=== PATIENT | male | born 2000 | race Caucasian/White ===

== ENCOUNTER 2019-08-01 13:07 | Emergency (ER) | payer BC, SELFPAY ==
--- NOTE | 2019-08-01 13:11 | ED.PSYCH ---
HPI - Psych General Chief Complaint: Psychiatric Symptoms Stated Complaint: ambulance Time Seen by Provider: 08/01/19 13:09 Source: patient, EMS and RN notes reviewed Mode of arrival: ambulatory Limitations: no limitations History of Present Illness HPI Narrative: patient states he got an argument with his father today. His father told him to get out of the house. He then texted someone that he was thinking of drowning himself and alike. He stopped in was smoking some marijuana when police arrived. He said he has had a long history of depression but this episode started today with argument with father. complaint: suicidal ideation and feels depressed Onset (ago): day(s) (1) Duration: intermittent History of same: Yes Relieving factors: none Exacerbating factors: none Context: recent drug abuse (Xanax and Marijuana) Associated psychiatric symptoms: depression Associated symptoms: denies other symptoms Treatments prior to arrival: none If self harm: admits thoughts of self harm Details of plan: Threatened to drown himself in a hernandez in text messages. Related Data Home Medications Medication Instructions Recorded Confirmed No Home Medications 08/01/19 08/01/19 Allergies Allergy/AdvReac Type Severity Reaction Status Date / Time No Known Allergies Allergy Verified 08/01/19 13:14 Review of Systems Review of Systems: All systems reviewed & are unremarkable except as noted in HPI and below PMFSH Past Medical History Medical History (Updated 08/01/19 @ 14:09 by Frank Booth MD) Depression Surgical History Surgical History (Updated 08/01/19 @ 13:22 by Frank Booth MD) No history of previous surgery Social History Social History (Updated 08/01/19 @ 13:22 by Frank Booth MD) Smoking status: Never smoker Alcohol intake: current Alcohol use details: occasional Substance use: current Substance use type: marijuana Living arrangements: with family Gender identity (if verbalized by the patient): Male Exam Const: General: healthy appearing, no acute distress and alert Nutritional Appearance: well nourished Orientation/consciousness: patient oriented x3 HENMT: Head: normal to inspection Ears: external ears normal Face and sinus: normal facial exam Eyes: Conjunctivae: conjunctivae normal Pupils: Equal, round and reactive pupils present EOM: EOMs intact bilaterally Neck: Neck: normal visual inspection Resp: Effort & Inspection: normal respiratory effort Auscultation: clear to auscultation bilaterally Cardio: Rate: regular rate Rhythm: regular rhythm GI: GI Palp: Yes Soft to palpation and No Tenderness to palpation present (GI) Auscultation: normal bowel sounds Back/Spine/Pelvis: Cervical Spine: cervical ROM normal Thoracic/Lumbar Spine: thoraco-lumbar ROM normal Skin: General skin exam: normal color Rashes: no rashes Neuro: General: patient oriented x3, moves all extremities and no focal motor deficits Speech: normal speech Psych: Speech and movement: Normal speech and movement present Affect: Indifferent affect present Attitude: cooperative Thought process: Normal thought process present Thought content: Yes Depressive thoughts present Insight: Good insight present (Psych) Judgement: Good judgement present (Psych) Course Course Emergency Course: Patient decided to elope from the emergency room when he was told he was going to be an involuntary admit. [facility] [employer] counseling services spoke with his mother. She had text messages same that the patient was going to harm her and harm her and then harm himself. She the mother is quite concerned that he needs professional help. Reevaluation(s) Reevaluation #1: patient became combative and belligerent. He is screaming at the top of his voice. Telling everyone to F off. He was disrespectful to police academy instructor and then began with destruction of property in the hospital. He was screaming and yellin
[2019-08-01 13:15] VITALS: BP 133/82; PULSE 108; RESP 16; TEMP 36.9; O2SAT 96
[2019-08-01 13:35] LABS: Amphetamine Screen Urine Positive (Negative); Barbiturate Screen Urine Negative (Negative); Benzodiazepines Screen Urine Positive (Negative); Cannabinoid Screen Urine Positive (Negative); Cocaine Screen Urine Negative (Negative); Methadone Screen Urine Negative (Negative); Opiate Screen Urine Negative (Negative); Phencyclidine Screen Urine Negative (Negative)
[2019-08-01 13:38] LABS: Basophils Absolute Auto 0.04 K/mm3 (0.00-0.10); Basophils Percent Auto 0.4 % (0.0-1.0); Eosinophils Absolute Auto 0.07 K/mm3 (0.02-0.50); Eosinophils Percent Auto 0.7 % (1.0-6.0); Hematocrit 52.1 % (40.0-54.0); Hemoglobin 17.9 g/dL (14.0-18.0); Immature Granulocyte Absolute 0.03 K/mm3 (0.00-0.00); Immature Granulocyte Percent A 0.3 % (0.0-0.0); Lymphocytes Absolute Auto 2.13 K/mm3 (1.10-4.50); Lymphocytes Percent Auto 21.9 % (18.0-42.0); Mean Corpuscular HGB Conc 34.4 g/dL (32.0-36.0); Mean Corpuscular Hemoglobin 30.9 pg (27.0-31.0); Mean Platelet Volume 9.4 fl (8.7-11.0); Monocytes Percent Auto 6.2 % (2.0-11.0); Neutrophils Absolute Auto 6.9 K/mm3 (1.7-7.2); Neutrophils Percent Auto 70.5 % (50.0-70.0); Platelet Count Result 296 K/mm3 (150-420); Red Blood Count 5.79 M/mm3 (4.70-6.10); Red Cell Distribution Width 12.9 % (11.6-14.4); White Blood Count 9.7 K/mm3 (4.8-10.8)
[2019-08-01 13:58] LABS: Acetaminophen 0 ug/mL (10-30); Ethanol < 3 mg/dL (0-6); Salicylate 1.3 mg/dL (2.8-20.0)
[2019-08-01 13:59] LABS: Alanine Aminotransferase 30 U/L (16-63); Albumin Level 4.9 g/dL (3.4-5.0); Alkaline Phosphatase 97 U/L (46-116); Aspartate Amino Transferase 17 U/L (15-37); Bilirubin,Total 1.8 mg/dL (0.00-1.00); Blood Urea Nitrogen 16 mg/dL (7-18); Calcium 9.6 mg/dL (8.5-10.1); Carbon Dioxide 25 mmol/L (21-32); Chloride 103 mmol/L (98-108); Estimated Glomerular Filt Rate > 60; Glucose 91 mg/dL (70-99); Osmolality Calculated 293 mOsm/kg (285-295); Sodium 141 mmol/L (136-145); Thyroid Stimulating Hormone 2.18 uIU/mL (0.36-3.74); Total Protein 8.4 g/dL (6.4-8.2)
--- NOTE | 2019-08-01 14:47 | PC.NURSE ---
PT GETTING LOUDER, STATES THAT WE ARE TAKING TOO LONG. PT STATES HE NEEDS TO GO OUTSIDE TO SMOKE, REQUEST IS DENIED. PT IS OFFERED A NICOTINE PATCH, PT REFUSES. PT REMINDED THAT [facility] WILL BE HERE SOON THEY CAN.
--- NOTE | 2019-08-01 15:14 | PC.NURSE ---
PT REFUSES IV/IV FLUIDS - ERP AWARE PT STILL IS UNABLE TO PRODUCE URINE SAMPLE
--- NOTE | 2019-08-01 15:36 | PC.NURSE ---
PT IN HIS ROOM SINGING LOUDLY - HE STATES THAT MUSIC HELPS HIM. [facility] SUPERVISOR W[facility]ING DEPARTMENT VERONICA SPEAKING ON THE PHONE WITH MOTHER BRADEN
--- NOTE | 2019-08-01 15:47 | PC.NURSE ---
ERP SPOKE WITH [facility] - THEY STATE PATIENT WILL NEED TO GO TO A PSYCH FACILITY FOR INVOLUNTARY ADMISSION - CALL PLACED TO [facility] PATIENT ELOPES FROM THIS ER. PT IS MADE AWARE OF PLAN OF ACTION IF HE ELOPES
--- NOTE | 2019-08-01 16:00 | PC.NURSE ---
PT IS BACK IN ROOM WITH POLICE ESCORT - PLAN OF ACTION GIVEN PATIENT WE WAIT FOR PSYCH ADMISSION. PT IS SCREAMING AND THROWS HIS PHONE. PT IS ASKED FOR SET OF VITALS AND HE KICKS THE MONITOR, CAUSING DAMAGE. PT CURSING LOUDLY AT STAFF.
--- NOTE | 2019-08-01 16:40 | PC.NURSE ---
FRONT ELEVATOR OPERATOR AT BEDSIDE WITH PATIENT AND OTHER STAFF MEMBERS DURING MEDICATION ADMINISTRATION
[2019-08-01] MEDS: LORAZEPAM INJ 2 MG/ML VIAL IM (16:41)
[2019-08-01] MEDS: HALOPERIDOL LACTATE 5 MG/ML VIAL IM ×2 (16:42→19:10)
--- NOTE | 2019-08-01 16:42 | PC.NURSE ---
LORAZEPAM DISCREPANCY CREATED IN [facility] AFTER NOT BEING ABLE TO GET LORAZEPAM OUT OF LOCKED BOX.
--- NOTE | 2019-08-01 18:07 | PC.NURSE ---
PT NOW SLEEPING, MOOD REMAINS CALM SINCE MEDICATION ADMINISTRATION - SITTER REMAINS AT BEDSIDE
--- NOTE | 2019-08-01 18:47 | ECG_ITS ---
Measurements Intervals [place] Rate: 67 P: 28 MO: 153 QRS: 3 QRSD: 110 T: 23 QT: 386 QTc: 410 Interpretive Statements SINUS RHYTHM MINIMAL Q WAVES- ANTEROLAT/LAT LEADS BORDERLINE ECG Electronically Signed On 08-01-2019 19:18:29 CDT by Tj Lai D.O.
--- NOTE | 2019-08-01 19:10 | PC.NURSE ---
PT IS AWAKENED FOR EKG APPLICATION D/T RECEIVING FACILITY REQUEST. PT MOOD GETS ACCELERATED AND HE STARTS SCREAMING AGAIN. PT CALLING NURSING STAFF CUNTS . PT KICKS A HOLE IN THE DRYWALL. PT BREAKS THE DOOR TO ROOM 5. POLICE OFFICERS BACK AT THE BEDSIDE. PICTURES TAKEN FOR CHARGES PENDING. ADDITIONAL MEDICATIONS GIVEN SITTER REMAINS AT BEDSIDE.
[2019-08-01 19:40] VITALS: PULSE 67; RESP 15; O2SAT 99
[2019-08-01 19:44] LABS: Add Urine Microscopic? YES; Appearance Urine Cloudy (Clear); Bilirubin Urine 1+ (Negative); Blood Urine Negative (Negative); Color Urine Yellow (Yellow); Glucose Urine UA Negative (Negative); Ketones Urine Negative (Negative); Leukocyte Esterase Ur Negative LEU/UL (Negative); Nitrate Urine Negative (Negative); Protein Urine Trace (Negative); Specific Grav Ur >= 1.030 (1.010-1.020); Urobilinogen Urine 0.2 mg/dL (0.2-1.0); pH Urine 5.5 (5.0-8.0)
[2019-08-01 19:50] LABS: Amorphous Sediment Urine Moderate; Bacteria Urine 4+ /hpf; RBC Urine 0-2 /hpf (0-2); Squamous Epithelial Cell Urine Few /hpf (Few); WBC Urine 0-3 /hpf (0-3)
--- NOTE | 2019-08-01 19:58 | PC.NURSE ---
PT SLEEPING AT THIS TIME. MOOD REMAINS CALM. AWAITING BED DISPOSITION. CHART SENT TO [facility] IN [place]
--- NOTE | 2019-08-01 20:30 | PC.NURSE ---
CALL PLACED TO MOTHER (BRADEN) [phone] - MADE AWARE OF RECENT BEHAVIORS AND PENDING CHARGES WITH [facility] [employer]
[2019-08-01 20:40] VITALS: BP 124/73; PULSE 87; RESP 17; O2SAT 97
== END 2019-08-01 20:40 ==
PROVIDERS: Emergency Provider Emergency Medicine; PCP Family Medicine
DX: F33.1 Major depressive disorder, recurrent, moderate (principal)
CPT/HCPCS: 36415; 80053; 80307; 81001; 84443; 85025; 93005; 96372; 99285; J1200; J1630; J2060

== ENCOUNTER 2020-02-03 06:52 | Outpatient (NON) | payer BC, SELFPAY ==
[2020-02-04 21:15] LABS: SARS-CoV-2 RNA PCR Negative
== END 2020-02-03 06:53 ==
PROVIDERS: PCP Family Medicine; Visit Provider Family Medicine
DX: Z20.828 Contact with and (suspected) exposure to other viral communicable diseases (principal); J20.9 Acute bronchitis, unspecified
CPT/HCPCS: 87635; C9803; U0003

== ENCOUNTER → 2020-11-13 01:19 | Outpatient (CLI) | payer BC, SELFPAY ==
[2020-11-13 21:01] LABS: SARS-CoV-2 RNA PCR Negative
== END ==
PROVIDERS: PCP Family Medicine; Visit Provider Family Medicine
DX: Z20.828 Contact with and (suspected) exposure to other viral communicable diseases (principal)
CPT/HCPCS: C9803; U0003; U0005

== ENCOUNTER 2022-08-15 18:09 | Emergency (ER) | payer BC, SELFPAY ==
--- NOTE | 2022-08-15 18:12 | ED.URI ---
HPI - URI/Sore Throat General Chief Complaint: Upper Respiratory Infection Stated Complaint: cold symptoms Time Seen by Provider: 08/15/22 18:12 Source: patient Mode of arrival: ambulatory Limitations: no limitations History of Present Illness HPI Narrative: Patient is a 21-year-old male who presents with 1 week of congestion and cough. Patient denies any ear pain, headache, fever, chills or sore throat. Patient has been using DayQuil/ NyQuil and Benadryl with mild relief. patient does smoke and vape both nicotine and marijuana. Patient states cold symptoms are going around the house Related Data Allergies Allergy/AdvReac Type Severity Reaction Status Date / Time No Known Allergies Allergy Verified 08/15/22 18:12 Review of Systems Review of Systems: All systems reviewed & are unremarkable except as noted in HPI and below Constitutional: Constitutional: Denies body ache(s), Denies chills, Denies fatigue, Denies fever(s), Denies headache(s), Denies malaise and Denies weakness Eyes: Eyes: Denies blurry vision, Denies itchy eyes and Denies loss of vision ENT: Denies otalgia, Denies headache(s), Reports nasal congestion, Denies post nasal drip, Denies sinus pain and Denies sore throat Cardiovascular: Cardiovascular: Denies chest pain, Denies irregular heart rhythm and Denies dyspnea Respiratory: Respiratory: Reports cough and Denies dyspnea Gastrointestinal: Gastrointestinal: Denies abdominal pain, Denies diarrhea, Denies nausea and Denies vomiting Musculoskeletal: Musculoskeletal: Denies back pain, Denies myalgias and Denies arthralgias Integumentary/Breasts: Skin/Breast: Denies pruritus and Denies rash Neurologic: Denies headache(s), Denies loss of vision and Denies weakness Psychiatric: Psychiatric: Reports no additional psychiatric complaints Endocrine: Endocrine: Denies fatigue Allergic/Immunologic: Allergic/Immunologic: Denies itchy eyes PMFSH Past Medical History Medical History (Updated 08/15/22 @ 18:55 by Stacey Meier APRN) Depression Surgical History Surgical History (Updated 08/01/19 @ 13:22 by Frank Booth MD) No history of previous surgery Social History Social History (Updated 08/01/19 @ 13:22 by Frank Booth MD) Smoking status: Never smoker Alcohol intake: current Alcohol use details: occasional Substance use: current Substance use type: marijuana Living arrangements: with family Gender identity (if verbalized by the patient): Male Comments At time of signature, agree with nursing past medical, surgical, social and family history. There is no relevant family history pertinent to the presenting complaint. Exam Const: General: cooperative, healthy appearing, comfortable, no acute distress and well nourished Nutritional Appearance: well nourished Orientation/consciousness: patient oriented x3 Limitations: no limitations HENMT: Head: normal to inspection, normocephalic and atraumatic Ears: hearing grossly normal bilaterally, external ears normal, TM's normal bilaterally, no periauricular adenopathy and Abnormal EAC present excessive cerumen on the left and erythema on the left Face/Nose/Sinus: Normal external nose present, Abnormal mucous membranes and turbinates present erythematous bilateral and diffuse, normal facial exam, sinuses nontender and face symmetric Face and sinus: normal facial exam, sinuses nontender and face symmetric Mouth: Yes Normal oral and palatal mucosa present, Yes lip normal, Yes tongue normal, Yes Normal salivary glands and ducts present, Yes oropharynx normal and Yes moist mucous membranes Teeth and gingiva: dentition normal Throat: posterior oropharynx normal, tonsils normal and uvula midline Eyes: General: appearance normal, both eyes and all related structures Alignment and Position: alignment normal and position normal Periorbital: periorbital findings normal Eyelids: eyelids normal Pupils: Equal, round and reactive pupils pre
[2022-08-15 18:27] VITALS: BP 121/66; PULSE 82; RESP 18; TEMP 36.6; O2SAT 97
== END 2022-08-15 18:58 | disposition home or self-care (01) ==
PROVIDERS: Emergency Provider Nurse Practitioner Family; PCP Family Medicine
DX: J06.9 Acute upper respiratory infection, unspecified (principal); H60.312 Diffuse otitis externa, left ear
CPT/HCPCS: 99213; G0463

== ENCOUNTER 2022-09-07 18:25 | Emergency (ER) | payer BC, SELFPAY ==
--- NOTE | ~2022-09-07 | XR_ITS ---
EXAM: XR shoulder RT min 2V DATE: 09/07/2022 18:53 HISTORY: left shoulder pain, lifting injury . COMPARISON: None available. FINDINGS: Normal mineralization. No fracture or dislocation. No lytic or blastic lesion. Joint space s are maintained. No erosion or periosteal change. Soft tissues within normal limits. IMPRESSION: Normal right shoulder radiograph findings. Reviewed, dictated and finalized at location K.
[2022-09-07 18:37] VITALS: BP 131/67; PULSE 100; RESP 18; TEMP 36.8; O2SAT 97
--- NOTE | 2022-09-07 19:25 | ED.UPPEXIN ---
HPI - Extremity Injury (Upper) General Chief Complaint: Extremity Injury, Upper Stated Complaint: rt shoulder pain Time Seen by Provider: 09/07/22 18:45 History of Present Illness HPI narrative: 21-year-old male presents with complaint of right shoulder pain For approximately 3 weeks. States that he was during trash in to dumpster and felt sharp pain to right shoulder. Taking Tylenol and ibuprofen with no improvement to pain. 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 States he also is in charge of all the heavy lifting such as placing things on overhead shelves and taking out the trash. He has noticed when lifting her right arm above his head increase in pain to right shoulder. He also feels some weakness to right upper extremity when heavy lifting due to pain of right shoulder. All systems reviewed and negative except as noted above. Related Data Home Medications Medication Instructions Recorded Confirmed No Home Medications 09/07/22 09/07/22 Allergies Allergy/AdvReac Type Severity Reaction Status Date / Time No Known Allergies Allergy Verified 09/07/22 18:42 Review of Systems Review of Systems: CONSTITUTIONAL: Denies fever, chills, or sweats. EYES: Denies visual changes, redness, or discharge. ENT: Denies rhinorrhea, congestion, sore throat, or otalgia. CARDIOVASCULAR: Denies chest pain, palpitations, or edema. RESPIRATORY: Denies cough or dyspnea. GASTROINTESTINAL: Denies abdominal pain, nausea, vomiting, or diarrhea. GENITOURINARY: Denies dysuria or hematuria. SKIN: Denies rash or itching. MUSCULOSKELETAL: Reports pain to right shoulder. NEUROLOGIC: Denies headache, numbness, or weakness. PSYCHIATRIC: Denies anxiety or depression. All other systems reviewed are negative, except as documented in HPI. [facility] Past Medical History Medical History (Updated 09/07/22 @ 19:20 by Kiesha Mendez NP) Depression Surgical History Surgical History (Updated 08/01/19 @ 13:22 by Frank Booth MD) No history of previous surgery Social History Social History (Updated 08/01/19 @ 13:22 by Frank Booth MD) Smoking status: Never smoker Alcohol intake: current Alcohol use details: occasional Substance use: current Substance use type: marijuana Living arrangements: with family Gender identity (if verbalized by the patient): Male Comments At time of signature, agree with nursing past medical, surgical, social and family history. There is no relevant family history pertinent to the presenting complaint. Exam Narrative: GENERAL: This is a well-nourished, well-developed patient, in no apparent distress. HEAD: normocephalic, atraumatic. EYES: PERRL. Sclera clear/white. Vision is grossly intact. EARS: External ears normal NOSE: External nose normal NECK: Neck supple, non-tender without lymphadenopathy, masses or thyromegaly. CARDIOVASCULAR: Regular rate and rhythm without murmurs, gallops, or rubs. RESPIRATORY: Clear to auscultation. Breath sounds equal bilaterally. No wheezes, rales, or rhonchi. SKIN: warm, Dry, intact with no suspicious lesions or rash, good texture and turgor. NEURO: awake, alert, and oriented to person, place and time. There were no obvious focal neurologic abnormalities. EXTREMITIES:Pain to anterior aspect of right shoulder over aromium and AC joint. Negative drop-arm test. Full range of motion noted to right shoulder with increase in pain with flexion and abduction Course Course Level of Care: Express Care Visit Vital Signs Vital signs: Vital Signs Temperature 36.8 C 09/07/22 18:37 Pulse Rate 100 09/07/22 18:37 Respiratory Rate 18 09/07/22 18:37 Blood Pressure 131/67 09/07/22 18:37 Pulse Oximetry 97 09/07/22 18:37 Oxygen Delivery Room Air 09/07/22 18:37 Temperature 36.8 C 09/07/22 18:37 Pulse Rate 10
== END 2022-09-07 19:22 | disposition home or self-care (01) ==
PROVIDERS: Emergency Provider Nurse Practitioner Family; PCP Family Medicine
DX: S46.811A Strain of other muscles, fascia and tendons at shoulder and upper arm level, right arm, initial encounter (principal); X50.0XXA Overexertion from strenuous movement or load, initial encounter; F12.90 Cannabis use, unspecified, uncomplicated
CPT/HCPCS: 73030; 99213; G0463

== ENCOUNTER 2024-08-01 09:32 | Emergency (ER) | payer BC, SELFPAY ==
--- NOTE | 2024-08-01 09:34 | ED.EYEPROB ---
HPI - Eye Problem General Chief complaint: Eye Problems Stated complaint: Eye Problem Time Seen by Provider: 08/01/24 09:45 Source: patient, RN notes reviewed and old records reviewed Mode of arrival: ambulatory Limitations: no limitations History of Present Illness HPI Narrative: 23-year-old male presents to the [facility] with complaints of right eye irritation. Patient reports 2 days ago started with some irritation to the right eye, rubbed his eye and got mikes extra hot honey sauce in his eye. states that he has had discomfort since. Denies any discharge. Does not were contact lenses. Denies any change in vision, blurry vision. Onset (ago): day(s) (2) Treatments Prior to Arrival: irrigated eye (right ) Related Data Allergies Allergy/AdvReac Type Severity Reaction Status Date / Time No Known Allergies Allergy Verified 08/01/24 09:41 Review of Systems Review of Systems: All systems reviewed & are unremarkable except as noted in HPI and below Constitutional: Constitutional: Reports no additional constitutional complaints Eyes: Eyes: Reports as per HPI, Denies blurry vision, Reports irritation and Denies itchy eyes ENT: Reports system reviewed and no additional complaints, except as documented Cardiovascular: Cardiovascular: Reports no additional cardiovascular complaints, Denies chest pain and Denies dyspnea Respiratory: Respiratory: Reports no additional respiratory complaints, Denies chest congestion, Denies cough and Denies dyspnea Musculoskeletal: Musculoskeletal: Reports no additional musculoskeletal complaints Integumentary/Breasts: Skin/Breast: Reports system reviewed and no additional complaints, except as docu PMFSH Past Medical History Medical History Depression Surgical History Surgical History No history of previous surgery Social History Social History Smoking status: Never smoker Alcohol intake: current Alcohol use details: occasional Substance use: current Substance use type: marijuana Living arrangements: with family Gender identity (if verbalized by the patient): Male Comments At the time of my signature, I reviewed and agree with the nursing past medical, surgical, social, and family history. There is no relevant family history pertinent to the patient complaint. Exam Const: General: cooperative, healthy appearing, comfortable, no acute distress, well developed, alert and well nourished Nutritional Appearance: well nourished Orientation/consciousness: patient oriented x3 Limitations: no limitations HENMT: Head: normal to inspection Mouth: Yes Normal oral and palatal mucosa present, Yes lip normal, Yes tongue normal and Yes moist mucous membranes Eyes: General: appearance normal, both eyes and all related structures Alignment and Position: alignment normal Conjunctivae: conjunctival abnormality right conjunctival injection localized (medial lower) Sclera: sclerae normal Cornea: corneas normal and fluorescein used Pupils: Equal, round and reactive pupils present and Pupils normal by confrontation EOM: EOMs intact bilaterally Direct Ophthalmoscopy: normal light reflex and no photophobia Neck: Neck: normal visual inspection, full ROM, no lymphadenopathy and no meningeal signs Chest: Chest palpation & inspection: normal inspection of the chest Resp: Effort & Inspection: normal respiratory effort and able to speak in complete sentences Auscultation: clear to auscultation bilaterally, no crackles, no rales, no rhonchi and no wheezes Cardio: Rate: regular rate Skin: General skin exam: normal color and no rashes or lesions noted Neuro: General: patient oriented x3, gait normal, moves all extremities and no meningeal signs Cognition (Neuro): normal cognition Speech: normal speech Gait exam (Neuro): Normal gait present Extrem: General: normal to inspection, full ROM, capillary refill normal and normal gait Psych: Appearance: grossly normal and well kempt Mental Status: mental status grossly normal Speech and movement: Normal speech and movement present and Clear speech present Affect: normal affect Attitude: cooperative Course Course Level of Care: Express Care Visit Vital Signs Vital signs: Vital Signs Temperature 97.5 F L 08/01/24 09:41 Pulse Rate 62 08/01/24 09:41 Respiratory Rate 16 08/01/24 09:41 Blood Pressure 126/87 08/01/24 09:41 Pulse Oximetry 99 08/01/24 09:41 Oxygen Delivery Room Air 08/01/24 09:41 Temperature 97.5 F L 08/01/24 09:41 Pulse Rate 62 08/01/24 09:41 Respiratory Rate 16 08/01/24 09:41 Blood Pressure 126/87 08/01/24 09:41 Pulse Oximetry 99 08/01/24 09:41 Oxygen Delivery Room Air 08/01/24 09:41 Reviewed MDM - Eye Problem Differential Diagnosis Differential diagnosis: Likely corneal abrasion, conjunctivitis, periorbital cellulitis and corneal ulcer Critical Care Time Critical Care Time Critical Care Time: No Discharge Plan Discharge Clinical Impression: Irritation of right eye Patient Disposition: Home Condition: Stable Instructions: Antibiotic Form, Conjunctivitis (ED), Eyelid Swelling (ED) Additional Instructions: Apply a cool, damp compress to your affected eye. Be sure to use a clean cloth each time to avoid spreading the infection. Gently clean your eyes with wet cotton balls or pads to remove crusty buildup or irritating discharge. Use eye drops as prescribed. Maintain good hygiene and only touch your eyes with freshly washed hands. For new or worsening symptoms please go directly to the emergency room Follow-up with primary care provider If you are having a hard time finding a physician please call our [facility] liaison at [phone]. You should follow-up with an eye doctor within the next 72 hours [facility]: [place]- [phone] [facility] [phone] [facility] [phone] [place]: [facility] [phone] or [phone] [facility] [phone] [facility] [phone] [facility] [phone] [facility] [phone] Patient Language: Hebrew Prescriptions: New ofloxacin 0.3 % drops See Rx Instructions EACH EYE .COMPLEX Qty: 5 0RF Rx Instructions: put 1 drop into right eye every 2-4 h x 2 days, then 1 drop 4 times/day days 3-7 Follow-up/Referrals: Jodi,MD Noe [Primary Care Provider] - Time of Disposition: 10:05
[2024-08-01 09:41] VITALS: BP 126/87; PULSE 62; RESP 16; TEMP 36.4; O2SAT 99
[2024-08-01] MEDS: FLUORESCEIN SOD 1 MG/STRIP RIGHT EYE (09:48)
[2024-08-01] MEDS: TETRACAINE HCL 0.5% OPHTH SOLN 4 ML BTL 1 DROP RIGHT EYE (09:48)
== END 2024-08-01 10:08 | disposition home or self-care (01) ==
PROVIDERS: Emergency Provider Nurse Practitioner; PCP Family Medicine
DX: H57.11 Ocular pain, right eye (principal)
CPT/HCPCS: 99213; G0463

== ENCOUNTER 2024-12-29 19:07 | Emergency (ER) | payer BC, SELFPAY ==
--- NOTE | 2024-12-29 19:10 | ED_ITS ---
HPI - URI/Sore Throat General Chief Complaint: Upper Respiratory Infection Stated Complaint: URI Time Seen by Provider: 12/29/24 19:30 Source: patient Mode of arrival: ambulatory Limitations: no limitations History of Present Illness HPI Narrative: Jagdish is a 24-year-old male patient presenting to the clinic today with complaints of a cough, chest congestion, sinus pressure, postnasal drip, and scratchy throat x1 month. He reports he is coughing up some yellow/white phlegm. Denies any shortness of breath or chest pain. He smokes marijuana and vapes. No history of asthma or COPD. Denies any fevers, chills, body aches. He stated he took a old prescription of amoxicillin 3 times daily for 1 week but that did not help the symptoms. Related Data Allergies Allergy/AdvReac Type Severity Reaction Status Date / Time No Known Allergies Allergy Verified 12/29/24 19:32 Review of Systems Review of Systems: Pertinent positives per HPI. Patient denies any fever, chills, rash, headache, visual changes, dizziness, shortness of breath, chest pain, palpitations, nausea, vomiting, diarrhea, constipation, abdominal pain, or any urinary issues. [facility] Past Medical History Medical History Depression Surgical History Surgical History No history of previous surgery Social History Social History Smoking status: Never smoker Alcohol intake: current Alcohol use details: occasional Substance use: current Substance use type: marijuana Living arrangements: with family Gender identity (if verbalized by the patient): Male Comments At the time of my signature, I reviewed and agree with the nursing past medical, surgical, social, and family history. There is no relevant family history pertinent to the patient complaint. Exam Narrative: General: Well-developed, morbidly obese, in no apparent distress Head: Normocephalic, atraumatic Eyes: Pupils equally round and reactive to light bilaterally, EOM intact, sclera and conjunctive clear, no discharge, lids normal Ears: TMs intact and congested, ear canals clear, no drainage, grossly hearing normal. Nose: Nares patent, yellow nasal discharge, mild inflammation, maxillary and frontal sinus tenderness. Mouth: Oral pharynx red without lesions or masses, good dentition, MMM. Postnasal drip Neck: Supple, trachea midline, no enlargement of anterior or posterior cervical nodes, no thyroid masses or goiter palpable. Cardio: Regular rate and rhythm, s1 and s2 normal, no murmur appreciated. Resp: Expiratory wheezing throughout lung wiggins, no rhonchi, rales, or rubs Course Course Emergency Course: Portions of this record may have been created with voice recognition software. Level of Care: Express Care Visit Vital Signs Vital signs: Vital Signs Temperature 36.5 C 12/29/24 19:23 Pulse Rate 71 12/29/24 19:23 Respiratory Rate 18 12/29/24 19:23 Blood Pressure 121/85 12/29/24 19:23 Pulse Oximetry 98 12/29/24 19:23 Temperature 36.5 C 12/29/24 19:23 Pulse Rate 71 12/29/24 19:23 Respiratory Rate 18 12/29/24 19:23 Blood Pressure 121/85 12/29/24 19:23 Pulse Oximetry 98 12/29/24 19:23 Vital signs reviewed MDM - URI/Sore Throat MDM Narrative Medical decision making narrative: At the time of visit patient is resting comfortably on the exam table. Patient appears to be nontoxic. Complaints of a cough, chest congestion, sinus pressure, postnasal drip, and scratchy throat x1 month. He reports he is coughing up some yellow/white phlegm. Denies any shortness of breath or chest pain. He smokes marijuana and vapes. No history of asthma or COPD. Denies any fevers, chills, body aches. He stated he took a old prescription of amoxicillin 3 times daily for 1 week but that did not help the symptoms. On exam patient has bilateral TM congestion, yellow nasal drainage with moderate anterior inflammation of the turbinates, oral pharynx red with postnasal drip, lung sounds-expiratory wheezing, heart rates regular rate and rhythm. Plan: I suspect patient has sinusitis/bronchitis. Prescription for Augmentin, prednisone, and albuterol inhaler was sent to the pharmacy. Work note was given. Supportive measures were discussed with the patient and they voiced understanding discharge instructions and agrees to treatment plan. Return precautions reviewed Differential Diagnosis Differential diagnosis: Likely upper respiratory infection, otitis media, sinusitis, viral infection, bronchitis, influenza, pharyngitis and other (COVID) Discharge Plan Discharge Clinical Impression: Bronchitis, Acute bacterial rhinosinusitis Patient Disposition: Home Condition: Stable Instructions: Antibiotic Form, Acute Bronchitis (ED), Rhinosinusitis (ED) Additional Instructions: Take prescription medications only as prescribed- Augmentin, prednisone, and albuterol inhaler Increase fluids and stay well hydrated May take Tylenol or motrin as directed on bottle for pain/fever May use Flonase 1 spray in each nare daily May take OTC antihistamines such as Zyrtec or Claritin daily as directed on bottle May apply Vicks vapor rub to chest to open sinuses Sinus rinses for congestion Cepacol spray, cough drops, throat lozenges, warm tea with honey/lemon, gargle salt water to soothe throat BRAT diet for diarrhea Clear liquids x 24 hours then advance as tolerated for nausea/vomiting Go to the ED if you develop a worsening in your condition- high fever not controlled by Tylenol or Motrin, dehydration, weakness, lethargy, shortness of breath, or chest pain. Follow up with your PCP in 3-5 days if symptoms persist. Patient Language: Bur[place]ian Prescriptions: New amoxicillin-pot clavulanate 875-125 mg tablet 1 tablet PO Q12H 10 Days Qty: 20 0RF prednisone 20 mg tablet 40 mg PO DAILY 5 Days Qty: 10 0RF albuterol sulfate 90 mcg/actuation HFA aerosol inhaler 2 puff inhalation Q4-6H PRN (Reason: shortness of breath or wheezing) 30 Days Qty: 8.5 0RF Follow-up/Referrals: Jodi,MD Noe [Primary Care Provider, Family Practice] Stand Alone Forms: Work/School Release IP Time of Disposition: 19:37 Quality NIHSS Nursing Documentation ED NIHSS nursing documentation: reviewed/agree
[2024-12-29 19:23] VITALS: BP 121/85; PULSE 71; RESP 18; TEMP 36.5; O2SAT 98
--- OUTSIDE RECORDS SUMMARY | 2024-12-29 19:30 | XMS_ITS | Clinical Summary ---
Author Organization [facility] Address [address] [place] [id number] Care Team Providers Care Food Preparer Name Role Phone Noe Zapata MD Primary Care Provider [phone] Social History Tobacco Use Types Packs/Day Years Used Date Smoking Tobacco: Never Assessed Sex and Gender Information Value Date Recorded Sex Assigned at Not on file Legal Sex Male 9:08 PM [employer] Gender Identity Not on file Sexual Orientation Not on file Plan of Treatment Health Maintenance Due Date Last Done Comments Annual Physical 2001 HPV Vaccines (1 - Male 3-dos e series) 2013 Hepatitis C 2016 DTaP, Tdap and Td Vaccines ( 1 - Tdap) 2017 Hepatitis B Vaccines (1 of 3 - 19+ 3-dose series) 2017 COVID-19 Vaccine (3 - 2024-2 6 season) 2024 11/21/2020, 10/31/2020 Influenza Adult (#1) 2024 Meningococcal Vaccine Completed 12/29/2016 , 10/11/2013 Meningococcal B Vaccine Aged Out No l onger eligible based on patient's age to complete this topic Pneumococcal Vaccine: Pediatrics (0 to 5 Years) and At-Risk Patients (6 to 49 Years) Aged Out No longer eligible b ased on patient's age to complete this topic RSV Immunizations Under 20 Months Aged Out No longer eligible b ased on patient's age to complete [place] [id number] [facility] Care Teams Food Preparer Relationship Specialty Start Date End Date Noe Zapata MD [address] [place] [phone] PCP - General FAMILY PRACTICE 09/23/22
== END 2024-12-29 19:42 | disposition home or self-care (01) ==
PROVIDERS: Emergency Provider Nurse Practitioner Family; PCP Family Medicine
DX: J01.90 Acute sinusitis, unspecified (principal); B96.89 Other specified bacterial agents as the cause of diseases classified elsewhere; F32.A Depression, unspecified; J40 Bronchitis, not specified as acute or chronic
CPT/HCPCS: 99213; G0463

== ENCOUNTER 2025-01-08 11:32 | Outpatient (CLI) | payer BC, SELFPAY ==
--- NOTE | ~2025-01-08 | XR_ITS ---
EXAMINATION: XR chest 2V, 01/08/2025 11:37 CDT HISTORY: BRONCHITIS, coughing up blood x 1 weeks, cough x 1 month COMPARISON: No comparisons available. Technique: 2 views obtained. Findings: The lungs are clear, no effusion. No pneumothorax. Heart is normal size. Mediastinal and hilar contours are within normal limits. Bony thorax no acute abnormality. Impression: No acute cardiopulmonary abnormality. Reviewed, dictated and finalized at location P. Impression: No acute cardiopulmonary abnormality.
== END 2025-01-08 11:33 | disposition home or self-care (01) ==
PROVIDERS: PCP Family Medicine; Visit Provider Family Medicine
DX: J45.901 Unspecified asthma with (acute) exacerbation (principal)
CPT/HCPCS: 71046

== ENCOUNTER 2025-01-29 11:32 | Outpatient (CLI) | payer BC, SELFPAY ==
--- NOTE | ~2025-01-29 | CT_ITS ---
EXAMINATION:CT diagnostic chest wo con DATE: 01/29/2025 11:45 INDICATION: Bronchitis TECHNIQUE: Computed tomography (CT) of the chest was performed without intravenous contrast. The dose-length product (DLP) was 719.59 mGy-cm. COMPARISON: None. FINDINGS: No consolidation effusion or pneumothorax. Bronchial noe slightly thickened in appearance. Central and large airways are patent. Heart and great vessels normal size. No significant pericardial effusion or bulky lymphadenopathy. No suspicious lung nodules or masses. Mild dextroscoliotic curvature of the thoracic spine noted. No acute or aggressive bony or soft tissue abnormality seen. No segmentation anomaly in the thoracic spine seen. No acute process seen in the visualized portion of the upper abdomen. Extra thoracic soft tissues unremarkable. IMPRESSION: 1. Mild bronchial wall thickening could be associated with atypical inflammatory or infectious process. No focal infiltrate. 2. Other findings as above. Reviewed, dictated and finalized at location A. INSURANCE UNDERWRITER IMPRESSION: 1. Mild bronchial wall thickening could be associated with atypical inflammator y or infectious process. No focal infiltrate. 2. Other findings as above.
== END 2025-01-29 11:33 | disposition home or self-care (01) ==
LOC: MICIMG 11:32
PROVIDERS: PCP Family Medicine; Visit Provider Family Medicine
DX: J20.9 Acute bronchitis, unspecified (principal); M43.8X4 Other specified deforming dorsopathies, thoracic region
CPT/HCPCS: 71250